=== PATIENT | male | born 1930 | race Caucasian/White ===

== ENCOUNTER 2016-12-26 19:41 | Inpatient (IN) | payer MEDICARE ==
--- NOTE | ~2016-12-26 | OP ---
Record Of Operation [facility] [address] [place]. [address] NAME: YG CLAUDIO SR : 31 STATUS : ADM IN PAT#: [id number] AGE: 86 ADM/REG DATE : 12/26/16 MR#: [id number] REPORT SERV DATE: 12/27/16 DICTATED BY: GILL STEWART DATE: 12/27/16 REPORT STATUS : Draft TRANSCRIBED BY: MARICHUY DATE: 12/27/16 DATE OF PROCEDURE: 12/27/2016 TITLE OF PROCEDURE: Central venous catheter placement. INDICATION: Shock and need for IV access. PROCEDURE NOTE: Time-out was completed verifying the correct patient and procedure. The patient was placed in a dependent position, appropriate for central line placement. The patient's right neck was prepped and draped in a sterile fashion. 1% lidocaine was used to anesthetize the surrounding skin area. A triple-lumen catheter was introduced into the right internal jugular vein using the Seldinger technique with ultrasound guidance. The catheter was threaded smoothly over the guidewire. Appropriate blood return was obtained. Each lumen of the catheter was evacuated of air and flushed with sterile saline. The catheter was then sutured in place to the skin and a sterile dressing applied. I was present for the entire procedure. The patient tolerated the procedure well. There were no complications. Chest x-ray was ordered to assess for pneumothorax. JUVENCIO/MARICHUY Gill Stewart MD / [id number] CC: Taniya Zimmerman M.D.
--- NOTE | ~2016-12-26 | CN ---
Consultation Report [facility] [address] [place]. [address] NAME: YG CLAUDIO SR : 31 STATUS : ADM IN [facility]#: [id number] AGE: 86 ADM/REG DATE : 12/26/16 MR#: [id number] REPORT SERV DATE: 12/28/16 DICTATED BY: JUAN SYKES DATE: 12/28/16 REPORT STATUS : Draft TRANSCRIBED BY: MODL DATE: 12/28/16 CONSULTATION DATE OF CONSULTATION: 12/27/2016 REASON FOR CONSULTATION: The patient admitted with history of GI bleed with nausea, vomiting, and coffee-ground emesis and also hematochezia at the same time. HISTORY OF PRESENT ILLNESS: Mr. Claudio is an 86-year-old male, known to me, who had undergone two colonoscopies by tx, the last one was in 2013. The patient has a history of colon cancer in the past, status post partial colectomy. Have removed few polyps on him during those two exams. At this time, the patient has been having nausea and vomiting for at least two or three days before this admission and started throwing up coffee-ground emesis and associated with rectal bleeding at the same time. In the emergency room, found to be a little bit hypotensive. Platelet count was 94,000, and hemoglobin on admission was 10.5 and hematocrit 30.9. The patient has a previous history of bleeding ulcers. A questionable history of NSAID use. PAST MEDICAL HISTORY: As mentioned, colon cancer, status post partial colectomy; abdominal aortic aneurysm repair 12 years ago; and history of chronic kidney disease. MEDICATIONS: At home including amlodipine, benazepril, Lotrel, chewable aspirin 81 mg a day, vitamin D daily, Mevacor, multivitamin, and Metamucil. ALLERGIES: NO KNOWN DRUG ALLERGIES. FAMILY HISTORY: Positive for vascular disease. SOCIAL HISTORY: Former smoker, quit 12 years ago. . LABORATORY DATA: Sodium 144, potassium 4.0, BUN 40, creatinine 2.24, calcium 7.5, albumin 2.8. Liver enzymes normal. Alkaline phosphatase normal. White count on admission was 9.6. Hemoglobin on admission was 10.3, dipped down to 8.4, required three units of blood transfusion so far. At one point, it did go down even up to 7.2 or so. Hematocrit on admission was 30.9 and went down to 24.4. RDW 15.9. Platelet count 94,000. Pro-time 15.3, INR 1.2. Chest x-ray, increased markings in the right perihilar region and at the left lung base, compatible with infiltrates or atelectasis, superimposed on chronic lung changes, and there is mild fullness of pulmonary vasculature; nodular opacity at the lower left lung base measured 23 mm, this is new since the patient's 2008 chest radiograph, and right internal jugular central venous catheter is noted. ASSESSMENT: The patient is admitted with upper GI bleed, resulting in hematemesis and also hematochezia. Consultation Report [address] [place]. [address] NAME: YG CLAUDIO : 31 STATUS : ADM IN PAT#: [id number] AGE: 86 ADM/REG DATE : 12/26/16 MR#: [id number] REPORT SERV DATE: 12/28/16 DICTATED BY: JUAN SYKES DATE: 12/28/16 REPORT STATUS : Draft TRANSCRIBED BY: MARICHUY DATE: 12/28/16 PLAN: To evaluate this history with upper endoscopy as soon as possible and may do colonoscopy if no etiology found on the upper exam. CAESAR/MARICHUY Juan Sykes M.D. / [id number] CC: Taniya Zimmerman M.D.
--- NOTE | ~2016-12-26 | EGD ---
EGD REPORT [facility] [address] [address] NAME: DAVE CLAUDIO SR : 31 STATUS : ADM IN PAT#: [id number] AGE: 86 ADM/REG DATE : 12/26/16 MR#: [id number] REPORT SERV DATE: 12/28/16 DICTATED BY: ADRIANA SYKES DATE: 12/28/16 REPORT STATUS : Draft [facility]ANSCRIBED BY: [facility] DATE: 12/28/16 Endoscopy Center Patient Name: Dave Claudio Date of : 1930 Attending MD: ADRIANA SYKES MD Procedure Date No Time: 12/27/2016 Procedure: Upper GI endoscopy Indications: Hematemesis, Hematochezia, Active gastrointestinal bleeding Medicines: Monitored Anesthesia Care Complications: No immediate complications. Procedure: Pre-Anesthesia Assessment: - ASA Grade Assessment: IV - A patient with severe systemic disease that is a constant threat to life. After obtaining informed consent, the endoscope was passed under direct vision. Throughout the procedure, the patient's blood pressure, pulse, and oxygen saturations were monitored continuously. The GIF [id number] was introduced through the mouth, and advanced to the second part of duodenum. The upper GI endoscopy was technically difficult and complex due to abnormal anatomy. The patient tolerated the procedure well. Findings: The nasopharynx was normal. LA Grade B (one or more mucosal breaks greater than 5 mm, not extending between the tops of two mucosal folds) esophagitis with no bleeding was found in the lower third of the esophagus. Hematin (altered blood/pyqgam-cnvqih-vxgq material) was found in the stomach. Diffuse moderate inflammation characterized by granularity was found in the stomach. Biopsies were taken with a cold forceps for histology. Verification of patient identification for the specimen was done. Estimated blood loss was minimal. A moderate post-ulcer deformity was found in the duodenal bulb. One oozing cratered duodenal ulcer with a visible vessel was found in the duodenal bulb. The lesion was 14 mm in largest dimension. Area was successfully injected with 2 mL of a 1:10,000 solution of epinephrine for hemostasis. Estimated blood loss was minimal. Coagulation for hemostasis using bipolar probe was successful. Estimated blood loss was minimal. Impression: - Normal nasopharynx. - LA Grade B reflux esophagitis. - Hematin (altered blood/swdgyv-zrspqa-nayz material) in EGD REPORT [address] [address] NAME: DAVE CLAUDIO : 31 STATUS : ADM IN [facility]#: [id number] AGE: 86 ADM/REG DATE : 12/26/16 MR#: [id number] REPORT SERV DATE: 12/28/16 DICTATED BY: ADRIANA SYKES DATE: 12/28/16 REPORT STATUS : Draft TRANSCRIBED BY: [employer] DATE: 12/28/16 the stomach. - Chronic gastritis. Biopsied. - Duodenal deformity. - One duodenal ulcer oozing blood. Injected. Treated with thermal therapy. Recommendation: - Follow an antireflux regimen daily. - Use Protonix (pantoprazole) 40 mg IV daily daily. - Discontinue aspirin and NSAIDs daily. Procedure Code(s): --- Professional --- 19948, 59, Esophagogastroduodenoscopy, flexible, transoral; with control of bleeding, any method 87127, Esophagogastroduodenoscopy, flexible, transoral; with biopsy, single or multiple Diagnosis Code(s): --- Professional --- K21.0, Gastro-esophageal reflux disease with esophagitis K92.2, Gastrointestinal hemorrhage, unspecified K29.50, Unspecified chronic gastritis without bleeding K31.89, Other diseases of stomach and duodenum K26.4, Chronic or unspecified duodenal ulcer with hemorrhage K92.0, Hematemesis K92.1, Melena CPT copyright 2013 [employer]. All rights reserved. The codes documented in this report are preliminary and upon cork grinder review may be revised to meet current compliance requirements. ADRIANA SYKES MD 12/28/2016 5:43 PM This report has been signed electronically. Number of Addenda: 0 Note Initiated On: 12/27/2016 2:13 PM [address] [address]
--- NOTE | ~2016-12-26 | HP ---
History And Physical [place] [id number] [facility] [place]. [address] NAME: YG CLAUDIO SR : 31 STATUS : ADM IN [facility]#: [id number] AGE: 86 ADM/REG DATE : 12/26/16 MR#: [id number] REPORT SERV DATE: 12/27/16 DICTATED BY: OSMANY BURK DATE: 12/26/16 REPORT STATUS : Draft TRANSCRIBED BY: [employer] DATE: 12/26/16 DATE OF ADMISSION: 12/26/2016 TIME: 2304 hours. Seen in ER bed 3. HISTORY OF PRESENT ILLNESS: The patient is an 86-year-old white male, who presented today with a history of hematochezia and hematemesis starting today. He was fine apparently yesterday, and this morning, became a little bit nauseated. Has some vomiting and some diarrhea. [place] slightly faint as well. Came to ER. He was found to have some mild hypotension, he was treated with IV fluids. His initial H and H on entry were 10.5 and 30.9. Platelet count 94,000. The patient did have some slightly symptomatic bradycardia while here after sitting up, felt to be vagal. Of note, the patient has had a previous history of ulcer disease in , apparently nonbleeding. Twelve years ago, he had an abdominal aortic aneurysm repair, non-stent. He has had previous colon surgery. PAST MEDICAL HISTORY: Significant for colon cancer, now resected; history of abdominal aortic aneurysm repair 12 years ago; history of chronic kidney disease. REVIEW OF SYSTEMS: GI: As above. : Negative. CARDIAC: Negative. MUSCULOSKELETAL: Negative. CATH[employer]DE [employer]OR: Negative. ENDOCRINE: Negative. HEM-ONC: As noted. FAMILY HISTORY: Noncontributory. SOCIAL HISTORY: Former smoker. Quit 12 years ago. He takes one aspirin a day. MEDICATIONS: His drug list shows amlodipine, benazepril, Lotrel one capsule p.o. daily, 81 mg chewable aspirin daily, vitamin D daily 50,000 units, Mevacor 20, multivitamins daily, and Metamucil. ALLERGIES: NO KNOWN ALLERGIES. LABORATORY DATA: His repeat H and H taken at 2256 hours showed 8.4 and 24.2, down from 8.4 and 30.9. Chest x-ray shows basically normal-looking chest. Similar compared to previous x ray in 2008. EKG shows sinus bradycardia, nonspecific intraventricular conduction delay. IMPRESSION: History And Physical [address] [place] [address] NAME: YG CLAUDIO : 31 STATUS : ADM IN PAT#: [id number] AGE: 86 ADM/REG DATE : 12/26/16 MR#: [id number] REPORT SERV DATE: 12/27/16 DICTATED BY: OSMANY BURK DATE: 12/26/16 REPORT STATUS : Draft TRANSCRIBED BY: MARICHUY DATE: 12/26/16 1. Gastrointestinal bleed. 2. aortic-enteric fistula. 3. Acute blood loss anemia. 4. Hypotension. 5. Chronic kidney disease. 6. History of colon resection for colon cancer. PLAN: Continue to monitor H and H, transfuse if his hemoglobin drops to 7. Dr. Oliva to see. May need CT scan. Awaiting for aortic-enteric fistula. Start Levophed. He had PICC line placement. RP/MARICHUY Osmany Burk M.D. / [id number] CC: Taniya Zimmerman M.D.
--- NOTE | ~2016-12-26 | DS ---
Discharge Summary [place] [address] [facility] [place]. [address] NAME: YG CLAUDIO SR : 31 STATUS : DIS IN PAT#: [id number] AGE: 86 ADM/REG DATE : 12/26/16 MR#: [id number] REPORT SERV DATE: 01/03/17 DICTATED BY: LIANG DING DATE: 01/02/17 REPORT STATUS : Draft TRANSCRIBED BY: MODL DATE: 01/02/17 ADMISSION DATE: 12/26/2016 DISCHARGE DATE: 01/02/2017 DISCHARGE DIAGNOSES: 1. Upper gastrointestinal bleed. 2. Acute blood loss anemia. 3. Duodenal ulcer with oozing blood that had been cauterized and injected by Dr. Juan Oliva. 4. Generalized gastritis. 5. Acute kidney injury on chronic kidney disease, currently resolved. 6. Thrombocytopenia, now resolved. 7. Hypertension. 8. 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 9. History of status post partial colectomy due to colon cancer. 10.Hyperlipidemia. CONSULTANTS DURING THIS HOSPITALIZATION: Dr. Juan Oliva of Gastroenterology, Dr. Franklin Burk of Intensive Care Unit. INVASIVE PROCEDURES DONE DURING THIS HOSPITALIZATION: EGD showing normal esophagus, LA grade B reflux esophagitis, coffee-ground material in the stomach, chronic gastritis, duodenal deformity, duodenal ulcer oozing blood, injected and treated with thermal therapy. BRIEF HISTORY OF PRESENT ILLNESS: The patient is an 86-year-old male, triaged in the emergency room on 12/26/2016 at 1804 hours. Complains of chest pain, nausea, abdominal pain, and a possible GI bleed, so he was admitted. For a detailed history and physical exam, please see H and P dictated by Dr. Franklin Burk on 12/26/2016. HOSPITAL COURSE: After being admitted to the hospital, this patient was kept in the intensive care unit. He received a total of 3 units of PRBCs and his H and H was stabilized. His hemoglobin did improve to 9.1, and now it is stabilized at around 8 to 8.5. This patient was seen by Dr. Juan Oliva in consultation. EGD was performed as noted above. This patient then remained in the intensive care unit for further observation and then was transitioned to the floor when his vital signs were stable. Today, this patient is tolerating a GI soft diet. He feels well. His H and H have remained stable. He did have 1 liquid stool, but there was no blood in it. He feels well enough that he wants to go home and recover in the home setting. The patient did have a mild elevation in his creatinine at about 1.7 on the day of discharge. His baseline creatinine is around 1.4 to 1.5. His BUN has remained normal. This could be due to acute blood loss anemia and hypotension that the patient recently had. This has all been corrected, and this will be followed up again by Dr. Franklin Huber, his primary care physician. He remained stable otherwise, and is being discharged in a stable condition. DISCHARGE DISPOSITION: Home. Discharge Summary [address] [place]. [address] NAME: YG CLAUDIO : 31 STATUS : DIS IN PAT#: [id number] AGE: 86 ADM/REG DATE : 12/26/16 MR#: [id number] REPORT SERV DATE: 01/03/17 DICTATED BY: LIANG DING DATE: 01/02/17 REPORT STATUS : Draft TRANSCRIBED BY: MARICHUY DATE: 01/02/17 DISCHARGE ACTIVITY: As tolerated. DISCHARGE DIET: GI soft with 4 g salt limit. DISCHARGE MEDICATIONS: Protonix 40 mg p.o. twice daily for 8 weeks and then reduced to once daily, vitamin D 50,000 units p.o. once weekly, lovastatin 20 mg p.o. once daily, multivitamins one tablet daily, aspirin 81 mg once daily, and Metamucil packet 1 daily. The patient was asked to hold his Lotrel until seen by Dr. Franklin Huber. More than 30 minutes spent planning this patient's discharge, reconciling medications, writing prescriptions, discussing hospital care, and followup with the patient and the at the bedside and documenting this discharge. HAI/MARICHUY Liang Ding M.D. / [id number] CC: Taniya Tipton M.D.
[2016-12-26 18:41] LABS: BASOPHILS 0.3 %; BASOPHILS ABSOLUTE 0.03 10/3/uL (0.0-0.16); EOSINOPHILS 1.1 %; EOSINOPHILS ABSOLUTE 0.11 10/3/uL (0.0-0.53); HEMATOCRIT 30.9 % (40.0-51.0); HEMOGLOBIN 10.5 g/dL (13.6-17.8); IMMATURE GRANULOCYTES 0.2 %; IMMATURE GRANULOCYTES ABSOLUTE 0.02 10/3/uL (0.0-0.11); LYMPHOCYTES 10.6 %; LYMPHOCYTES ABSOLUTE 1.02 10/3/uL (0.67-4.30); MANUAL DIFF NO %; MEAN CORPUSCULAR HEMOGLOB 33.1 pg (26.0-34.0); MEAN CORPUSCULAR VOLUME 97.5 fL (80-100); MEAN PLATELET VOLUME 10.2 fL (9.2-13.0); MONOCYTES 7.9 %; MONOCYTES ABSOLUTE 0.76 10/3/uL (0.21-1.20); NEUTROPHILS 79.9 %; PLATELET COUNT 94 10/3/uL (150-400); RBC DISTRIBUTION WIDTH 13.8 % (12.0-16.0); RED CELL COUNT 3.17 10/6/uL (4.7-6.1); WHITE BLOOD CELLS 9.6 10/3/uL (4.5-10.5)
[2016-12-26 18:55] LABS: A/G RATIO 0.9 (0.7-1.9); ALBUMIN 2.8 G/DL (3.5-5.0); ALKALINE PHOSPHATASE 94 U/L (45-117); BUN (BLOOD UREA NITROGEN) 40 MG/DL (6-23); CALCIUM, SERUM 7.5 MG/DL (8.5-10.4); CHLORIDE, SERUM 110 MMOL/L (96-112); CO2 (CARBON DIOXIDE) 25 MMOL/L (24-34); CREATININE 2.24 MG/DL (0.70-1.30); GFR AFRICAN AMERICAN 30 ML/MIN (>=60); GFR NON AFRICAN AMERICAN 26 ML/MIN (>=60); GLUCOSE, SERUM 204 MG/DL (60-99); INTERNATIONAL NORMAL RATI 1.2 UNITS (-); PARTIAL THROMBO TIME 33.2 SEC (22.5-37.2); PROTIME (NOT ORD) 15.3 SEC (12.0-14.5); SGOT(AST) 10 U/L (5-40); SGPT(ALT) 15 U/L (5-65); TOTAL BILIRUBIN 0.3 MG/DL (0-1.2); TOTAL PROTEIN 5.8 G/DL (6.0-8.5)
[2016-12-26 18:56] LABS: SODIUM, SERUM 144 MMOL/L (135-148)
[~2016-12-26 19:41] MED LIST: ASAB PO; CADUET10 MG/20 M PO; CIMETIDINE300 MG PO; FOLBEE PO; MEVACOR PO; TANDEM PLUS OR
[2016-12-26 20:29] LABS: TROPONIN I 0.03 NG/ML (<0.05)
[2016-12-26] MEDS ORDERED: LOTREL1 CA2 PO (22:03)
[2016-12-26] MEDS ORDERED: MEVACOR PO (22:03)
[2016-12-26] MEDS ORDERED: ASAB PO (22:03)
[2016-12-26] MEDS ORDERED: VITD PO (22:04)
[2016-12-26] MEDS ORDERED: MVI PO (22:04)
[2016-12-26] MEDS ORDERED: METPAKSF PO (22:04)
[2016-12-26 22:56] LABS: HEMATOCRIT 24.4 % (40.0-51.0); HEMOGLOBIN 8.4 g/dL (13.6-17.8)
[2016-12-27 06:22] LABS: HEMATOCRIT 30.4 % (40.0-51.0); HEMOGLOBIN 10.5 g/dL (13.6-17.8); MEAN CORPUS HGB CONC 34.5 g/dL (32.0-36.0); MEAN CORPUSCULAR HEMOGLOB 31.3 pg (26.0-34.0); MEAN CORPUSCULAR VOLUME 90.7 fL (80-100); MEAN PLATELET VOLUME 10.6 fL (9.2-13.0); PLATELET COUNT 74 10/3/uL (150-400); RBC DISTRIBUTION WIDTH 15.5 % (12.0-16.0); RED CELL COUNT 3.35 10/6/uL (4.7-6.1); WHITE BLOOD CELLS 12.7 10/3/uL (4.5-10.5)
[2016-12-27 06:23] LABS: MANUAL DIFF YES %
[2016-12-27 06:35] LABS: CALCIUM, SERUM 7.1 MG/DL (8.5-10.4); CHLORIDE, SERUM 115 MMOL/L (96-112); CREATININE 2.35 MG/DL (0.70-1.30); GFR AFRICAN AMERICAN 28 ML/MIN (>=60); GFR NON AFRICAN AMERICAN 24 ML/MIN (>=60); GLUCOSE, SERUM 211 MG/DL (60-99); SODIUM, SERUM 144 MMOL/L (135-148)
[2016-12-27 06:36] LABS: BUN (BLOOD UREA NITROGEN) 55 MG/DL (6-23); CO2 (CARBON DIOXIDE) 17 MMOL/L (24-34); POTASSIUM, SERUM 5.5 MMOL/L (3.5-5.3)
[2016-12-27 07:07] LABS: PHOSPHORUS, SERUM 2.5 MG/DL (2.5-4.5); T4 (THYROXINE) TOTAL 5.3 MCG/DL (4.5-12.0)
[2016-12-27 07:18] LABS: BAND NEUTROPHILS 10 %; LYMPHOCYTES 8 %; LYMPHOCYTES ABSOLUTE (CALC) 1.02 10/3/uL (0.67-4.30); MONOCYTES 9 %; MONOCYTES ABSOLUTE (CALC) 1.14 10/3/uL (0.21-1.20); NEUTROPHILS ABSOLUTE (CALC) 10.54 10/3/uL (2.02-8.40); PLATELET ESTIMATE DEC (ADEQUATE); SEGMENTED NEUTROPHIL (0) 73 %; TOTAL NUCLEATED CELLS 100
[2016-12-27 07:19] LABS: RBC MORPHOLOGY NORM (NORMAL)
[2016-12-27 10:15] LABS: HEMOGLOBIN 8.8 g/dL (13.6-17.8)
[2016-12-27 10:16] LABS: HEMATOCRIT 24.4 % (40.0-51.0)
[2016-12-27 10:26] LABS: INTERNATIONAL NORMAL RATI 1.6 UNITS (-); PARTIAL THROMBO TIME 40.4 SEC (22.5-37.2)
[2016-12-27 10:27] LABS: PROTIME (NOT ORD) 19.3 SEC (12.0-14.5)
[2016-12-27 12:09] LABS: HEMATOCRIT 25.9 % (40.0-51.0); HEMOGLOBIN 9.2 g/dL (13.6-17.8); MEAN CORPUS HGB CONC 35.5 g/dL (32.0-36.0); MEAN CORPUSCULAR HEMOGLOB 31.6 pg (26.0-34.0); MEAN PLATELET VOLUME 9.9 fL (9.2-13.0); PLATELET COUNT 55 10/3/uL (150-400); RBC DISTRIBUTION WIDTH 16.1 % (12.0-16.0); RED CELL COUNT 2.91 10/6/uL (4.7-6.1); WHITE BLOOD CELLS 17.5 10/3/uL (4.5-10.5)
[2016-12-27 12:10] LABS: MANUAL DIFF YES %
[2016-12-27 12:16] LABS: INTERNATIONAL NORMAL RATI 1.5 UNITS (-); PROTIME (NOT ORD) 18.3 SEC (12.0-14.5)
[2016-12-27 12:25] LABS: A/G RATIO 0.9 (0.7-1.9); ALBUMIN 2.1 G/DL (3.5-5.0); ALKALINE PHOSPHATASE 58 U/L (45-117); BUN (BLOOD UREA NITROGEN) 65 MG/DL (6-23); CALCIUM, SERUM 6.9 MG/DL (8.5-10.4); CHLORIDE, SERUM 118 MMOL/L (96-112); CO2 (CARBON DIOXIDE) 15 MMOL/L (24-34); CREATININE 2.55 MG/DL (0.70-1.30); GFR AFRICAN AMERICAN 26 ML/MIN (>=60); GFR NON AFRICAN AMERICAN 22 ML/MIN (>=60); GLOBULIN 2.3 G/DL (2.5-4.1); GLUCOSE, SERUM 182 MG/DL (60-99); POTASSIUM, SERUM 5.4 MMOL/L (3.5-5.3); SGOT(AST) 11 U/L (5-40); SGPT(ALT) 11 U/L (5-65); SODIUM, SERUM 145 MMOL/L (135-148); TOTAL PROTEIN 4.4 G/DL (6.0-8.5)
[2016-12-27 12:59] LABS: BAND NEUTROPHILS 13 %; BURR CELLS 1+ (3-10/OIF) (0-2/OIF); LYMPHOCYTES 8 %; MONOCYTES 7 %; MONOCYTES ABSOLUTE (CALC) 1.23 10/3/uL (0.21-1.20); NEUTROPHILS ABSOLUTE (CALC) 14.88 10/3/uL (2.02-8.40); PLATELET ESTIMATE DEC (ADEQUATE); SEGMENTED NEUTROPHIL (0) 72 %; TOTAL NUCLEATED CELLS 100
[2016-12-27 14:53] LABS: HEMOGLOBIN 10.1 g/dL (13.6-17.8)
[2016-12-27 14:54] LABS: HEMATOCRIT 28.6 % (40.0-51.0)
[2016-12-27 17:23] LABS: POTASSIUM, SERUM 5.3 MMOL/L (3.5-5.3)
[2016-12-27 22:34] LABS: HEMATOCRIT 28.8 % (40.0-51.0)
[2016-12-28 03:22] LABS: MEAN CORPUS HGB CONC 35.4 g/dL (32.0-36.0); MEAN CORPUSCULAR HEMOGLOB 31.3 pg (26.0-34.0); MEAN CORPUSCULAR VOLUME 88.2 fL (80-100); MEAN PLATELET VOLUME 10.6 fL (9.2-13.0); PLATELET COUNT 59 10/3/uL (150-400); RBC DISTRIBUTION WIDTH 15.9 % (12.0-16.0); RED CELL COUNT 2.88 10/6/uL (4.7-6.1); WHITE BLOOD CELLS 12.4 10/3/uL (4.5-10.5)
[2016-12-28 03:23] LABS: HEMATOCRIT 25.4 % (40.0-51.0); MANUAL DIFF YES %
[2016-12-28 03:39] LABS: CALCIUM, SERUM 7.2 MG/DL (8.5-10.4); CHLORIDE, SERUM 122 MMOL/L (96-112); CREATININE 2.35 MG/DL (0.70-1.30); GFR AFRICAN AMERICAN 28 ML/MIN (>=60); GFR NON AFRICAN AMERICAN 24 ML/MIN (>=60); PHOSPHORUS, SERUM 2.7 MG/DL (2.5-4.5); POTASSIUM, SERUM 5.2 MMOL/L (3.5-5.3); SODIUM, SERUM 149 MMOL/L (135-148)
[2016-12-28 03:41] LABS: BUN (BLOOD UREA NITROGEN) 59 MG/DL (6-23); CO2 (CARBON DIOXIDE) 21 MMOL/L (24-34); GLUCOSE, SERUM 117 MG/DL (60-99)
[2016-12-28 06:56] LABS: BAND NEUTROPHILS 10 %; LYMPHOCYTES 13 %; LYMPHOCYTES ABSOLUTE (CALC) 1.61 10/3/uL (0.67-4.30); MONOCYTES 4 %; NEUTROPHILS ABSOLUTE (CALC) 10.29 10/3/uL (2.02-8.40); SEGMENTED NEUTROPHIL (0) 73 %; TOTAL NUCLEATED CELLS 100
[2016-12-28 06:57] LABS: PLATELET ESTIMATE DEC (ADEQUATE); RBC MORPHOLOGY NORM (NORMAL)
[2016-12-28 09:23] LABS: HEMATOCRIT 24.2 % (40.0-51.0); HEMOGLOBIN 8.7 g/dL (13.6-17.8)
[2016-12-28 19:10] LABS: HEMATOCRIT 24.3 % (40.0-51.0); HEMOGLOBIN 8.4 g/dL (13.6-17.8)
[2016-12-29 03:52] LABS: BASOPHILS 0.3 %; BASOPHILS ABSOLUTE 0.03 10/3/uL (0.0-0.16); EOSINOPHILS 3.1 %; HEMATOCRIT 22.4 % (40.0-51.0); HEMOGLOBIN 7.9 g/dL (13.6-17.8); IMMATURE GRANULOCYTES 0.2 %; IMMATURE GRANULOCYTES ABSOLUTE 0.02 10/3/uL (0.0-0.11); LYMPHOCYTES 9.3 %; MEAN CORPUS HGB CONC 35.3 g/dL (32.0-36.0); MEAN CORPUSCULAR HEMOGLOB 31.5 pg (26.0-34.0); MEAN CORPUSCULAR VOLUME 89.2 fL (80-100); MEAN PLATELET VOLUME 9.8 fL (9.2-13.0); MONOCYTES 9.9 %; MONOCYTES ABSOLUTE 0.95 10/3/uL (0.21-1.20); NEUTROPHILS 77.2 %; NEUTROPHILS ABSOLUTE 7.43 10/3/uL (2.02-8.40); RBC DISTRIBUTION WIDTH 16.2 % (12.0-16.0); RED CELL COUNT 2.51 10/6/uL (4.7-6.1); WHITE BLOOD CELLS 9.6 10/3/uL (4.5-10.5)
[2016-12-29 03:55] LABS: MANUAL DIFF NO %; PLATELET COUNT 62 10/3/uL (150-400)
[2016-12-29 04:17] LABS: CALCIUM, SERUM 7.4 MG/DL (8.5-10.4); CHLORIDE, SERUM 117 MMOL/L (96-112); CO2 (CARBON DIOXIDE) 21 MMOL/L (24-34); GFR AFRICAN AMERICAN 42 ML/MIN (>=60); GFR NON AFRICAN AMERICAN 36 ML/MIN (>=60); GLUCOSE, SERUM 103 MG/DL (60-99); PHOSPHORUS, SERUM 1.9 MG/DL (2.5-4.5); SODIUM, SERUM 146 MMOL/L (135-148)
[2016-12-29 04:22] LABS: BUN (BLOOD UREA NITROGEN) 35 MG/DL (6-23); CREATININE 1.68 MG/DL (0.70-1.30); PLATELET ESTIMATE DEC (ADEQUATE); POTASSIUM, SERUM 4.1 MMOL/L (3.5-5.3); RBC MORPHOLOGY NORM (NORMAL)
[2016-12-29 08:51] LABS: HEMATOCRIT 22.7 % (40.0-51.0)
[2016-12-29 09:03] LABS: PHOSPHORUS, SERUM 2.1 MG/DL (2.5-4.5)
[2016-12-29 16:59] LABS: HEMATOCRIT 23.2 % (40.0-51.0)
[2016-12-30 03:33] LABS: BASOPHILS 0.2 %; BASOPHILS ABSOLUTE 0.02 10/3/uL (0.0-0.16); EOSINOPHILS 2.9 %; EOSINOPHILS ABSOLUTE 0.28 10/3/uL (0.0-0.53); HEMATOCRIT 22.7 % (40.0-51.0); HEMOGLOBIN 7.7 g/dL (13.6-17.8); IMMATURE GRANULOCYTES 0.2 %; IMMATURE GRANULOCYTES ABSOLUTE 0.02 10/3/uL (0.0-0.11); LYMPHOCYTES 9.6 %; LYMPHOCYTES ABSOLUTE 0.94 10/3/uL (0.67-4.30); MEAN CORPUS HGB CONC 33.9 g/dL (32.0-36.0); MEAN CORPUSCULAR HEMOGLOB 30.8 pg (26.0-34.0); MEAN CORPUSCULAR VOLUME 90.8 fL (80-100); MEAN PLATELET VOLUME 9.8 fL (9.2-13.0); MONOCYTES 9.4 %; MONOCYTES ABSOLUTE 0.92 10/3/uL (0.21-1.20); NEUTROPHILS 77.7 %; NEUTROPHILS ABSOLUTE 7.62 10/3/uL (2.02-8.40); PLATELET COUNT 74 10/3/uL (150-400); RBC DISTRIBUTION WIDTH 15.4 % (12.0-16.0); WHITE BLOOD CELLS 9.8 10/3/uL (4.5-10.5)
[2016-12-30 03:45] LABS: CALCIUM, SERUM 7.3 MG/DL (8.5-10.4); CHLORIDE, SERUM 115 MMOL/L (96-112); CO2 (CARBON DIOXIDE) 21 MMOL/L (24-34); CREATININE 1.57 MG/DL (0.70-1.30); GFR AFRICAN AMERICAN 46 ML/MIN (>=60); GFR NON AFRICAN AMERICAN 40 ML/MIN (>=60); GLUCOSE, SERUM 114 MG/DL (60-99); POTASSIUM, SERUM 3.9 MMOL/L (3.5-5.3); SODIUM, SERUM 147 MMOL/L (135-148)
[2016-12-30 03:47] LABS: BUN (BLOOD UREA NITROGEN) 22 MG/DL (6-23)
[2016-12-30 04:07] LABS: PLATELET ESTIMATE DEC (ADEQUATE)
[2016-12-30 04:08] LABS: ANISOCYTOSIS 1+ (5-10/OIF) (0-5/OIF); BURR CELLS 1+ (3-10/OIF) (0-2/OIF); POLYCHROMASIA 1+ (2-5/OIF) (0-1/OIF)
[2016-12-30 10:22] LABS: HEMOGLOBIN 9.1 g/dL (13.6-17.8)
[2016-12-30 10:24] LABS: HEMATOCRIT 26.3 % (40.0-51.0)
[2016-12-31 04:35] LABS: BASOPHILS 0.2 %; BASOPHILS ABSOLUTE 0.02 10/3/uL (0.0-0.16); EOSINOPHILS 3.4 %; EOSINOPHILS ABSOLUTE 0.36 10/3/uL (0.0-0.53); HEMATOCRIT 21.6 % (40.0-51.0); HEMOGLOBIN 7.8 g/dL (13.6-17.8); IMMATURE GRANULOCYTES 0.4 %; IMMATURE GRANULOCYTES ABSOLUTE 0.04 10/3/uL (0.0-0.11); LYMPHOCYTES 10.4 %; LYMPHOCYTES ABSOLUTE 1.09 10/3/uL (0.67-4.30); MANUAL DIFF NO %; MEAN CORPUS HGB CONC 36.1 g/dL (32.0-36.0); MEAN CORPUSCULAR HEMOGLOB 32.1 pg (26.0-34.0); MEAN CORPUSCULAR VOLUME 88.9 fL (80-100); MEAN PLATELET VOLUME 9.4 fL (9.2-13.0); MONOCYTES 11.2 %; MONOCYTES ABSOLUTE 1.17 10/3/uL (0.21-1.20); NEUTROPHILS 74.4 %; PLATELET COUNT 96 10/3/uL (150-400); RBC DISTRIBUTION WIDTH 15.2 % (12.0-16.0); RED CELL COUNT 2.43 10/6/uL (4.7-6.1); WHITE BLOOD CELLS 10.5 10/3/uL (4.5-10.5)
[2016-12-31 04:49] LABS: BUN (BLOOD UREA NITROGEN) 18 MG/DL (6-23); CALCIUM, SERUM 7.7 MG/DL (8.5-10.4); CHLORIDE, SERUM 108 MMOL/L (96-112); CO2 (CARBON DIOXIDE) 23 MMOL/L (24-34); CREATININE 1.58 MG/DL (0.70-1.30); GFR AFRICAN AMERICAN 46 ML/MIN (>=60); GFR NON AFRICAN AMERICAN 39 ML/MIN (>=60); GLUCOSE, SERUM 114 MG/DL (60-99); POTASSIUM, SERUM 3.3 MMOL/L (3.5-5.3); SODIUM, SERUM 142 MMOL/L (135-148)
[2017-01-01 06:37] LABS: BASOPHILS 0.1 %; BASOPHILS ABSOLUTE 0.01 10/3/uL (0.0-0.16); EOSINOPHILS 3.8 %; EOSINOPHILS ABSOLUTE 0.38 10/3/uL (0.0-0.53); HEMATOCRIT 24.2 % (40.0-51.0); HEMOGLOBIN 8.4 g/dL (13.6-17.8); IMMATURE GRANULOCYTES 0.4 %; IMMATURE GRANULOCYTES ABSOLUTE 0.04 10/3/uL (0.0-0.11); LYMPHOCYTES 10.7 %; LYMPHOCYTES ABSOLUTE 1.07 10/3/uL (0.67-4.30); MANUAL DIFF NO %; MEAN CORPUS HGB CONC 34.7 g/dL (32.0-36.0); MEAN CORPUSCULAR HEMOGLOB 31.2 pg (26.0-34.0); MEAN PLATELET VOLUME 9.8 fL (9.2-13.0); MONOCYTES 13.2 %; MONOCYTES ABSOLUTE 1.32 10/3/uL (0.21-1.20); NEUTROPHILS 71.8 %; NEUTROPHILS ABSOLUTE 7.17 10/3/uL (2.02-8.40); PLATELET COUNT 128 10/3/uL (150-400); RBC DISTRIBUTION WIDTH 15.2 % (12.0-16.0); RED CELL COUNT 2.69 10/6/uL (4.7-6.1)
[2017-01-01 06:54] LABS: ALBUMIN 2.4 G/DL (3.5-5.0); BUN (BLOOD UREA NITROGEN) 17 MG/DL (6-23); CALCIUM, SERUM 7.8 MG/DL (8.5-10.4); CHLORIDE, SERUM 103 MMOL/L (96-112); CO2 (CARBON DIOXIDE) 26 MMOL/L (24-34); CREATININE 1.59 MG/DL (0.70-1.30); GFR AFRICAN AMERICAN 45 ML/MIN (>=60); GFR NON AFRICAN AMERICAN 39 ML/MIN (>=60); GLUCOSE, SERUM 105 MG/DL (60-99); PHOSPHORUS, SERUM 2.7 MG/DL (2.5-4.5); POTASSIUM, SERUM 3.4 MMOL/L (3.5-5.3); SODIUM, SERUM 141 MMOL/L (135-148)
[2017-01-02 06:36] LABS: BASOPHILS 0.2 %; BASOPHILS ABSOLUTE 0.02 10/3/uL (0.0-0.16); EOSINOPHILS 4.1 %; HEMATOCRIT 23.5 % (40.0-51.0); HEMOGLOBIN 8.3 g/dL (13.6-17.8); IMMATURE GRANULOCYTES 0.3 %; IMMATURE GRANULOCYTES ABSOLUTE 0.03 10/3/uL (0.0-0.11); LYMPHOCYTES 17.1 %; LYMPHOCYTES ABSOLUTE 1.68 10/3/uL (0.67-4.30); MEAN CORPUS HGB CONC 35.3 g/dL (32.0-36.0); MEAN CORPUSCULAR HEMOGLOB 31.2 pg (26.0-34.0); MEAN CORPUSCULAR VOLUME 88.3 fL (80-100); MEAN PLATELET VOLUME 9.6 fL (9.2-13.0); MONOCYTES 16.4 %; MONOCYTES ABSOLUTE 1.61 10/3/uL (0.21-1.20); NEUTROPHILS 61.9 %; PLATELET COUNT 157 10/3/uL (150-400); RBC DISTRIBUTION WIDTH 15.6 % (12.0-16.0); RED CELL COUNT 2.66 10/6/uL (4.7-6.1); WHITE BLOOD CELLS 9.8 10/3/uL (4.5-10.5)
[2017-01-02 06:38] LABS: MANUAL DIFF NO %
[2017-01-02 06:45] LABS: BUN (BLOOD UREA NITROGEN) 17 MG/DL (6-23); CALCIUM, SERUM 7.9 MG/DL (8.5-10.4); CHLORIDE, SERUM 104 MMOL/L (96-112); CO2 (CARBON DIOXIDE) 26 MMOL/L (24-34); CREATININE 1.73 MG/DL (0.70-1.30); GFR AFRICAN AMERICAN 41 ML/MIN (>=60); GFR NON AFRICAN AMERICAN 35 ML/MIN (>=60); GLUCOSE, SERUM 117 MG/DL (60-99); POTASSIUM, SERUM 3.5 MMOL/L (3.5-5.3); SODIUM, SERUM 139 MMOL/L (135-148)
[2017-01-02 08:34] LABS: PHOSPHORUS, SERUM 2.4 MG/DL (2.5-4.5)
[2017-01-02] MEDS ORDERED: PROTONIX PO (10:19)
== END 2017-01-02 11:41 | disposition home or self-care (01) | DRG 377 ==
LOC: ER 19:41 → CVICU 23:23 → 6NO 12-31 16:55
PROVIDERS: Emergency Medicine; Internal Medicine; Internal Medicine Critical Care Medicine; Internal Medicine Gastroenterology; Internal Medicine Pulmonary Disease
PROC: 30233N1 Transfusion of Nonautologous Red Blood Cells into Peripheral Vein, Percutaneous Approach (ICD-10-PCS; 2016-12-27)
PROC: 05HM33Z Insertion of Infusion Device into Right Internal Jugular Vein, Percutaneous Approach (ICD-10-PCS; principal; 2016-12-27 15:08)
PROC: 3E0G8GC Introduction of Other Therapeutic Substance into Upper GI, Via Natural or Artificial Opening Endoscopic (ICD-10-PCS; 2016-12-27 15:08)
PROC: 0D598ZZ Destruction of Duodenum, Via Natural or Artificial Opening Endoscopic (ICD-10-PCS; 2016-12-27 15:08)
DX: K26.4 Chronic or unspecified duodenal ulcer with hemorrhage (principal); R57.1 Hypovolemic shock; N17.9 Acute kidney failure, unspecified; D69.6 Thrombocytopenia, unspecified; E87.5 Hyperkalemia; D62 Acute posthemorrhagic anemia; N18.9 Chronic kidney disease, unspecified; I12.9 Hypertensive chronic kidney disease with stage 1 through stage 4 chronic kidney disease, or unspecified chronic kidney disease; E78.5 Hyperlipidemia, unspecified; K29.50 Unspecified chronic gastritis without bleeding; Z90.49 Acquired absence of other specified parts of digestive tract; Z85.038 Personal history of other malignant neoplasm of large intestine; K21.0 Gastro-esophageal reflux disease with esophagitis; K31.89 Other diseases of stomach and duodenum
CPT/HCPCS: 36415; 71010; 71250; 80048; 80053; 80069; 82533; 83735; 83880; 84100; 84132; 84436; 84484; 85014; 85018; 85025; 85610; 85730; 86850; 86900; 86901; 86920; 87641; 88305; 88342; 93005; 94667; 94668; 99285; A9270-GY; C9113; J0330; J2405; J3430; P9016